=== PATIENT | male | born 1990 | race African-American/Black ===

== ENCOUNTER 2017-01-21 10:55 | Emergency (ER) | payer OTHER ==
[2017-01-21 11:03] VITALS: BMI 32.5
--- NOTE | 2017-01-21 14:12 | PDOC ---
History of Present Illness - General History Source: Patient Exam Limitations: No Limitations - History of Present Illness Initial Comments: 01/21/17 14:13 The patient is a 26-year-old man with no past medical history who presents to the emergency department for further evaluation of persistent abdominal pain for the past week. Patient reports experiencing intermittent lower abdominal pain , described as a burning sensation that occasionally wraps around his left flank with a rated 8/10 in severity. He reports associated symptoms of intermittent nausea, vomiting and diarrhea. He notes that his pain worsens when he eats. He was evaluated at [facility] approximately 4 days ago; he was given anti-nausea medications and discharged home. He denies chest pain, cough, shortness of breath, headache He denies dysuria, hematuria, urinary frequency/urgency. No recent ingestion of river, stream or house water. No recent ingestion of raw meat. No recent ingestion of shellfish. No antibiotic use in the past 6 months. No recent travel outside of the [facility]. No sick contacts with similar symptoms. No blood or mucous noted in the stools. Allergies: No Known Drug Allergies Past Surgical History: None reported. Social History: No tobacco and recreational drug use. Occasional EtOH use. Primary Care Physician: Dr. Dawn Morataya <Flaca Sam - Last Filed: 01/21/17 14:37> <Evan Ferris - Last Filed: 01/21/17 17:02> - General Chief Complaint: Pain, Acute Stated Complaint: ABD PAIN Time Seen by Provider: 01/21/17 14:11 Past History <Flaca Sam - Last Filed: 01/21/17 14:37> - Past Medical History Other medical history: denies - Immunization History Immunization Up to Date: Yes - Psycho/Social/Smoking Cessation Hx Suicidal Ideation: No Smoking History: Never smoked Have you smoked in the past 12 months: No Information on smoking cessation initiated: No Hx Alcohol Use: Yes Drug/Substance Use Hx: No Substance Use Type: Alcohol <Evan Ferris - Last Filed: 01/21/17 17:02> - Past Medical History Allergies/Adverse Reactions: Allergies Allergy/AdvReac Type Severity Reaction Status Date / Time No Known Allergies Allergy Verified 01/21/17 10:59 Home Medications: Ambulatory Orders Pantoprazole Sodium [Protonix] 40 mg PO DAILY #30 tablet. 01/21/17 Review of Systems - Review of Systems Able to Perform ROS?: Yes Comments:: 01/21/17 14:13 CONSTITUTIONAL: Absent: fever, chills, diaphoresis, generalized weakness, malaise, loss of appetite HEENT: Absent: rhinorrhea, nasal congestion, throat pain, throat swelling, difficulty swallowing, mouth swelling, ear pain, eye pain, visual Changes CARDIOVASCULAR: Absent: chest pain, syncope, palpitations, irregular heart rate , lightheadedness, peripheral edema RESPIRATORY: Absent: cough, shortness of breath, dyspnea with exertion, orthopnea, wheezing, stridor, hemoptysis GASTROINTESTINAL: Present: Abdominal Pain. Nausea. Vomiting. Diarrhea. Absent: abdominal distension, constipation, melena, hematochezia GENITOURINARY: Present: Flank Pain. Absent: dysuria, frequency, urgency, hesitancy, hematuria, genital pain MUSCULOSKELETAL: Absent: myalgia, arthralgia, joint swelling SKIN: Absent: rash, itching, pallor HEMATOLOGIC/IMMUNOLOGIC: Absent: easy bleeding, easy bruising, lymphadenopathy, frequent infections ENDOCRINE:Absent: unexplained weight gain, unexplained weight loss, heat intolerance, cold intolerance NEUROLOGIC: Absent: headache, focal weakness or paresthesias, dizziness, unsteady gait, seizure, mental status changes, bladder or bowel incontinence PSYCHIATRIC: Absent: anxiety, depression, suicidal or homicidal ideation, hallucinations <Flaca Sam - Last Filed: 01/21/17 14:37> *Physical Exam - Vital Signs Last Vital Signs Temp Pulse Resp BP Pulse Ox 98.2 F 84 18 134/72 100 01/21/17 11:00 01/21/17 11:00 01/21/17 11:00 01/21/17 11:00 01/21/17 11:00 - Physical Exam Comments: 01/21/17 14:13 GENERAL: Well developed, well nourished. Awake and alert. No acute distress. HEENT: Normocephalic, atraumatic. PERRLA, EOMI. No conjunctival pallor. Sclera are non-icteric. Moist mucous membranes. Oropharynx is clear. NECK: Supple. Full ROM. No JVD. CARDIOVASCULAR: Regular rate and rhythm. No murmurs, rubs, or gallops. PULMONARY: No evidence of respiratory distress. Lungs clear to auscultation bilaterally. No wheezing, rales or rhonchi. ABDOMINAL: Soft. There is mild tenderness to deep palpation in the bilateral lower quadrants and the suprapubic region. Non-distended. No rebound or guarding. No organomegaly. Normoactive bowel sounds. MUSCULOSKELETAL: Normal range of motion at all joints. No bony deformities or tenderness. No CVA tenderness. EXTREMITIES: No cyanosis. No clubbing. No edema. No calf tenderness. SKIN: Warm and dry. Normal capillary refill. No rashes. No jaundice. NEUROLOGICAL: Alert, awake, appropriate. Cranial nerves 2-12 intact. No deficits to light touch and temperature in face, upper extremities and lower extremities. No motor deficits in the in face, upper extremities and lower extremities. Normoreflexic in the upper and lower extremities. Normal speech. PSYCHIATRIC: Cooperative. Good eye contact. Appropriate mood and affect. <Flaca Sam - Last Filed: 01/21/17 14:37> - Vital Signs Last Vital Signs Temp Pulse Resp BP Pulse Ox 98.2 F 84 18 134/72 100 01/21/17 11:00 01/21/17 11:00 01/21/17 11:00 01/21/17 11:00 01/21/17 11:00 <Evan Ferris - Last Filed: 01/21/17 17:02> ED Treatment Course - LABORATORY CBC & Chemistry Diagram: 01/21/17 14:36 01/21/17 14:36 <Evan Ferris - Last Filed: 01/21/17 17:02> Medical Decision Making - Medical Decision Making 01/21/17 14:58 He is well-appearing and in no acute distress he relates that the pain is very related to food ingestion CBC noted Chemistries and CT pending 01/21/17 15:[address] pending 01/21/17 16:42 CT results pending His pain is resolved On repeat abdominal examination, his abdomen is soft and nontender Clinical impression: Abdominal pain Possible gastritis He understands the importance of following up with his primary care physician and a appeals court associate justice I have referred him to Dr. Gardner I discussed the physical exam findings, ancillary test results and final diagnoses with the patient. I answered all of the patient's questions. The patient was satisfied with the care received and felt comfortable with the discharge plan and treatment plan. The patient will call their primary care physician within 24 hours to arrange follow-up and will return to the Emergency Department with any new, persistent or worsening symptoms. A portion of this note was documented by scribe services under my direction. I have reviewed the details of the note, within reason, and agree with the documentation with the following case summary and management plan written by me. 01/21/17 17:00 <Evan Ferris - Last Filed: 01/21/17 17:02> *DC/Admit/Observation/Transfer - Attestations Scribe Attestion: 01/21/17 14:14 Documentation prepared by Flaca Sam, acting as medical technologist generalist for Evan Ferris MD. <Flaca Sam - Last Filed: 01/21/17 14:37> <Evan Ferris - Last Filed: 01/21/17 17:02> Diagnosis at time of Disposition: Abdominal pain, Gastritis - Discharge Dispostion Condition at time of disposition: Improved - Referrals Referrals: Dawn Morataya MD [Primary Care Provider] - German Gardner MD [Staff Physician] - Call tomorrow - Patient Instructions Printed Discharge Instructions: DI for Abdominal Pain-Adult, DI for Gastritis Additional Instructions: Your blood work and CAT scan did not reveal a cause for your abdominal pain. It is very important that you follow-up with your primary care physician and the appeals court associate justice whom I referred you, so they can perform further workup. You may have gastritis, which is inflammation of the stomach lining. We prescribed a medicine called Protonix for this. Return to the emergency department immediately with ANY new, persistent or worsening symptoms. You MUST call and follow up with your doctor tomorrow. Please make sure your doctor reviews the results of your emergency department evaluation.
[2017-01-21] MEDS ORDERED: IBUPROFEN 800 MG/8 ML IJ IVPB ONE ×2 (14:17→14:38)
[2017-01-21] MEDS ORDERED: SODIUM CHLORIDE 1,000 ML IV SCH (14:30)
[2017-01-21 14:48] LABS: BASOPHIL 0.9 % (0-2.0); EOSINOPHIL 2.4 % (0-4.5); MCH 29.2 pg (25.7-33.7); MCHC 33.1 g/dl (32.0-35.9); MEAN CELL VOLUME 88.3 fl (80-96); MEAN PLT VOLUME 8.9 fl (7.5-11.1); NEUTROPHILS 34.7 % (42.8-82.8); PLATELET COUNT 190 K/MM3 (134-434); RDW 13.7 % (11.9-15.9); WHITE BLOOD COUNT 9.4 K/mm3 (4.0-10.0)
[2017-01-21 15:18] LABS: URINE APPEARANCE CLEAR; URINE BILIRUBIN NEGATIVE (NEGATIVE); URINE COLOR YELLOW; URINE GLUCOSE (UA) NEGATIVE (NEGATIVE); URINE KETONE NEGATIVE (NEGATIVE); URINE LEUK ESTERASE NEGATIVE (NEGATIVE); URINE NITRITE NEGATIVE (NEGATIVE); URINE PROTEIN NEGATIVE (NEGATIVE); URINE UROBILINOGEN 2.0 E.U/dl E.U./dl (0.2-1.0)
[2017-01-21 15:20] LABS: ALBUMIN 4.1 g/dl (3.4-5.0); ANION GAP 9 (8-16); CO2 25 mmol/L (21-32); GLUCOSE,RANDOM 119 mg/dL (74-106)
[2017-01-21 15:23] LABS: ALK PHOS 104 U/L (45-117); BILIRUBIN,TOTAL 0.3 mg/dL (0.2-1.0); COCKROFT - GAULT 175.38; SGOT/AST 30 U/L (15-37); SGPT/ALT 32 U/L (12-78); TOT PROT 7.4 g/dl (6.4-8.2)
[2017-01-21 15:53] LABS: URINE BLOOD 1+ (NEGATIVE)
[2017-01-21 16:08] LABS: URINE MUCUS RARE; URINE RBC 7 /hpf (0-3); URINE WBC 2 /hpf (3-5)
[2017-01-21 18:51] VITALS: BP 125/76; PULSE 72; TEMP 98.1
== END 2017-01-21 18:53 | disposition home or self-care (01) ==
LOC: JER 10:55
PROC: 3E033GC Introduction of Other Therapeutic Substance into Peripheral Vein, Percutaneous Approach (ICD-10-PCS; principal; 2017-01-21)
DX: K29.70 Gastritis, unspecified, without bleeding (principal); R10.30 Lower abdominal pain, unspecified
CPT/HCPCS: 36415; 74177-TC; 80053; 81003; 81015; 83690; 85025; 86140; 99283-25; Q9967

== ENCOUNTER 2017-04-22 12:19 | Emergency (ER) | payer OTHER ==
[2017-04-22 12:25] VITALS: BP 127/77; PULSE 66; TEMP 98.4; BMI 32.3
--- NOTE | 2017-04-22 12:52 | PDOC ---
History of Present Illness - General Chief Complaint: Injury Stated Complaint: RT FINGER INJURY Time Seen by Provider: 04/22/17 12:31 History Source: Patient Exam Limitations: No Limitations - History of Present Illness Initial Comments: 04/22/17 13:16 Rash to right index finger in door way this morning. Complaints of pain extending from distal anger into PIP. No bleeding although notices some bruising under his nail. Occurred: reports: just prior to arrival, this morning Severity: reports: mild, moderate Pain Location: reports: upper extremity (right index finger ) Associated Symptoms (Fall): denies symptoms Past History - Travel Traveled outside of the country in the last 30 days: No Close contact w/someone who was outside of country & ill: No - Past Medical History Allergies/Adverse Reactions: Allergies Allergy/AdvReac Type Severity Reaction Status Date / Time No Known Allergies Allergy Verified 04/22/17 12:23 Home Medications: Ambulatory Orders Pantoprazole Sodium [Protonix] 40 mg PO DAILY #30 tablet. 01/21/17 Other medical history: NONE - Immunization History Immunization Up to Date: Yes - Psycho/Social/Smoking Cessation Hx Anxiety: No Suicidal Ideation: No Smoking History: Never smoked Have you smoked in the past 12 months: No Information on smoking cessation initiated: No Hx Alcohol Use: No Drug/Substance Use Hx: No Substance Use Type: Alcohol Trauma Specific PMHX - Complaint Specific PMHX Back Injury: No Neck Injury: No Review of Systems - Review of Systems Able to Perform ROS?: Yes Is the patient limited Belarusian proficient: Yes Constitutional: Yes: See HPI. No: Symptoms Reported, Malaise HEENTM: No: Symptoms Reported Musculoskeletal: Yes: Symptoms Reported, See HPI, Joint Pain, Joint Swelling ( right index finger ) Integumentary: Yes: Symptoms Reported, See HPI, Bruising All Other Systems: Reviewed and Negative *Physical Exam - Vital Signs Last Vital Signs Temp Pulse Resp BP Pulse Ox 98.4 F 66 18 127/77 96 04/22/17 12:23 04/22/17 12:23 04/22/17 12:23 04/22/17 12:23 04/22/17 12:23 - Physical Exam General Appearance: Yes: Nourished, Appropriately Dressed, Apparent Distress HEENT: positive: DEWAYNE, Normal ENT Inspection, TMs Normal, Pharynx Normal Neck: positive: Supple. negative: Tender Gastrointestinal/Abdominal: positive: Soft Extremity: positive: Normal Capillary Refill, Normal Range of Motion, Swelling ( mild swelling and tenderness at the DIP and distal phalanx. No crepitus or step- offs, has subungual hematoma extending approximately one quarter [address] the [address] past epionychium. No bleeding, no other injury.). 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 Finger was splinted, medicated with ibuprofen and will follow up as needed. *DC/Admit/Observation/Transfer Diagnosis at time of Disposition: Crush injury to finger Qualifiers: Encounter type: initial encounter Qualified Code(s): S67.10XA - Crushing injury of unspecified finger(s), initial encounter - Discharge Dispostion Disposition: HOME Condition at time of disposition: Stable Admit: No - Patient Instructions Printed Discharge Instructions: DI for Crush Injury Additional Instructions: Rest, ice to area on and off for 15 minutes 4-6 times a day Avoid heavy lifting or exercise until pain and swelling is resolved or until further directed Keep area highly elevated to reduce swelling Use splints/George wrap as directed Followup with orthopedist in one to 2 days if not improving, if significantly improved may wait one week for followup with orthopedist May use ibuprofen 2-200 mg tablets every 6 hours as needed for pain - Post Discharge Activity Work/School Note: Back to Work
[2017-04-22] MEDS ORDERED: IBUPROFEN 600 MG TABLET (FP) PO ONE ×2 (13:15→13:17)
== END 2017-04-22 13:29 | disposition home or self-care (01) ==
LOC: JERFT 12:19
PROC: 2W3JX1Z Immobilization of Right Finger using Splint (ICD-10-PCS; principal; 2017-04-22)
DX: S67.190A Crushing injury of right index finger, initial encounter (principal); W23.0XXA Caught, crushed, jammed, or pinched between moving objects, initial encounter; Y93.9 Activity, unspecified; Y92.9 Unspecified place or not applicable
CPT/HCPCS: 73140-TC-RT; 99281-25

== ENCOUNTER 2019-05-25 16:41 | Emergency (ER) | payer OTHER ==
[2019-05-25 17:16] VITALS: BP 130/83; PULSE 78; BMI 32.5
--- NOTE | 2019-05-25 17:17 | PDOC ---
Rapid Medical Evaluation Time Seen by Provider: 05/25/19 17:13 Medical Evaluation: Allergies Allergy/AdvReac Type Severity Reaction Status Date / Time No Known Allergies Allergy Verified 04/22/17 12:23 05/25/19 17:13 Pt presents to the ER for low back pain. He states his symptoms started two days ago. Denies heavy lifting or injury. Denies saddle anesthesia or bladder/ bowel incontinence Exam: TTP of the LL back paraspinous muscles Order: toradol Pt to proceed to the ER for further evaluation Discharge Disposition - Diagnosis Back pain - Referrals Referrals: Chaitanya Antunez MD [Primary Care Provider] - - Patient Instructions - Post Discharge Activity
--- NOTE | 2019-05-25 18:11 | PDOC ---
History of Present Illness - General Chief Complaint: Pain Stated Complaint: LOW BACK PAIN Time Seen by Provider: 05/25/19 17:13 History Source: Patient Exam Limitations: No Limitations - History of Present Illness Initial Comments: 05/25/19 18:05 states last 3 days had white DC from penis and burning with void. STates was STD tested last week and found to be negative, has had unprotected sex since. + Hx of CHlamydia 2 years ago, [facility] also had history of UTI approximately one year ago after hernia repair. [facility] urologist believed was related to catheterization during surgery the patient developed these problems. Denies lesions to his penis or testicles, denies fever. taken ibuprofen with no resolve 05/25/19 18:38 Occurred: reports: just prior to arrival Severity: reports: mild, moderate Past History - Travel Traveled outside of the country in the last 30 days: No Close contact w/someone who was outside of country & ill: No - Past Medical History Allergies/Adverse Reactions: Allergies Allergy/AdvReac Type Severity Reaction Status Date / Time No Known Allergies Allergy Verified 04/22/17 12:23 Home Medications: Ambulatory Orders Pantoprazole Sodium [Protonix] 40 mg PO DAILY #30 tablet. 01/21/17 CVA: No COPD: No CHF: No - Immunization History Immunization Up to Date: Yes - Suicide/Smoking/Psychosocial Hx Smoking History: Never smoked Have you smoked in the past 12 months: No Information on smoking cessation initiated: No Hx Alcohol Use: No Drug/Substance Use Hx: No Substance Use Type: Alcohol Trauma Specific PMHX - Complaint Specific PMHX Back Injury: No Neck Injury: No Review of Systems - Review of Systems Able to Perform ROS?: Yes Is the patient limited Setswana proficient: Yes Constitutional: Yes: Symptoms Reported, See HPI. No: Chills, Fever, Loss of Appetite, Malaise HEENTM: Yes: See HPI. No: Symptoms Reported Respiratory: Yes: See HPI. No: Symptoms reported, Cough Cardiac (ROS): No: Symptoms Reported ABD/GI: Yes: Symptoms Reported : Yes: Symptoms Reported, See HPI, Burning, Dysuria, Discharge Musculoskeletal: No: Symptoms Reported All Other Systems: Reviewed and Negative *Physical Exam - Vital Signs Last Vital Signs Temp Pulse Resp BP Pulse Ox 78 16 130/83 97 05/25/19 17:14 05/25/19 17:14 05/25/19 17:14 05/25/19 17:14 - Physical Exam General Appearance: Yes: Nourished, Appropriately Dressed, Apparent Distress, Mild Distress HEENT: positive: DEWAYNE, Normal ENT Inspection, TMs Normal, Pharynx Normal, Nasal Congestion Neck: positive: Supple. negative: Tender Respiratory/Chest: positive: Lungs Clear Gastrointestinal/Abdominal: positive: Soft. negative: Tender Male Genitalia: positive: normal genitalia. 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 Reviewed with patient will treat for presumed STD due to penis discharge and knows the results of these tests will not be completed for 3-5 days. *DC/Admit/Observation/Transfer Diagnosis at time of Disposition: Dysuria - Discharge Dispostion Disposition: HOME Condition at time of disposition: Stable Decision to Admit order: No - Referrals Referrals: Chaitanya Antunez MD [Primary Care Provider] - - Patient Instructions Printed Discharge Instructions: Facts About Sexually Transmitted Infections Additional Instructions: You been treated today with azithromycin 1 g by mouth for treatment of chlamydia You have been treated with Rocephin 250 mg injection for treatment of gonorrhea Your lab testing will be resulted in 3-5 days to confirm any diagnose May call [phone] and leave your name/ birthdate/ phone number for a call back for lab results Always use condoms with the partners Followup with [facility] in one week for reevaluation and retesting. Encouraged HIV testing at that visit. - Post Discharge Activity Forms/Work/School Notes: Back to Work
[2019-05-25 19:26] LABS: EPI CELLS 0.5 /HPF (0-5/HPF); HYALINE CASTS 4 /lpf (0-8); URINE APPEARANCE CLEAR; URINE BACTERIA 7.8 /hpf (NEGATIVE); URINE BILIRUBIN NEGATIVE (NEGATIVE); URINE COLOR YELLOW; URINE GLUCOSE (UA) NEGATIVE (NEGATIVE); URINE KETONE NEGATIVE (NEGATIVE); URINE LEUK ESTERASE NEGATIVE (NEGATIVE); URINE NITRITE NEGATIVE (NEGATIVE); URINE PROTEIN NEGATIVE (NEGATIVE); URINE RBC 8 /hpf (0-4); URINE WBC 2 /hpf (0-5)
[2019-05-25] MEDS ORDERED: AZITHROMYCIN 500 MG TABLET PO ONE (19:44)
[2019-05-25] MEDS ORDERED: AZITHROMYCIN 500 MG TABLET ONE (19:48)
[2019-05-25] MEDS ORDERED: LIDOCAINE HCL 1%, 10 MG/ML (20ML VIAL) ONE (19:48)
== END 2019-05-25 20:32 | disposition home or self-care (01) ==
LOC: JERFT 16:41 → JER 16:41 → JERFT 20:32
DX: R30.0 Dysuria (principal); R36.9 Urethral discharge, unspecified
CPT/HCPCS: 36415; 81003; 87491; 87591; 99282-25